=== PATIENT | male | born 1940 | race Caucasian/White ===

== ENCOUNTER → 2017-10-16 | Outpatient (CLI) | payer MEDICARE ==
[2017-10-16 08:16] LABS: HEMATOCRIT 50.1 % (42.0-52.0); HEMOGLOBIN 15.9 g/dl (14.0-18.0); MEAN CORPUSCULAR HGB CONC 31.7 g/dl (32.0-36.5); MEAN CORPUSCULAR VOLUME 97.7 fl (80.0-96.0); PLATELET COUNT, AUTOMATED 177 10^3/uL (150-450); RED BLOOD COUNT 5.13 10^6/uL (4.30-6.10); RED CELL DISTRIBUTION WIDTH 13.2 % (11.5-14.5); WHITE BLOOD COUNT 6.8 10^3/uL (4.0-10.0)
[2017-10-16 08:46] LABS: ALBUMIN 3.7 GM/DL (3.2-5.2); ALBUMIN/GLOBULIN RATIO 1.03 (1.00-1.93); ALKALINE PHOSPHATASE 62 U/L (45-117); ALT/SGPT 26 U/L (12-78); ANION GAP 5 MEQ/L (8-16); AST/SGOT 27 U/L (7-37); BILIRUBIN,TOTAL 0.6 MG/DL (0.2-1.0); BLOOD UREA NITROGEN 25 MG/DL (7-18); CALCIUM LEVEL 8.5 MG/DL (8.8-10.2); CARBON DIOXIDE LEVEL 34 MEQ/L (21-32); CHLORIDE LEVEL 104 MEQ/L (98-107); CHOLESTEROL LEVEL 177 MG/DL (<200); CHOLESTEROL RISK RATIO 4.022 (<5); GLOMERULAR FILTRATION RATE 52.6 (>42); GLUCOSE, FASTING 104 MG/DL (70-100); HDL CHOLESTEROL 44 MG/DL (>40); LDL CHOLESTEROL 114.4 MG/DL (<100); NON-HDL-C 133 MG/DL; POTASSIUM SERUM 3.8 MEQ/L (3.5-5.1); PROSTATIC SPECIFIC AG MONITOR 2.98 NG/ML (< 4.0); SODIUM LEVEL 143 MEQ/L (136-145); TOTAL PROTEIN 7.3 GM/DL (6.4-8.2); TRIGLYCERIDES LEVEL 93 MG/DL (<150)
[2017-10-16 09:02] LABS: ESTIMATED AVERAGE GLUCOSE 128 MG/DL (60-110); HEMOGLOBIN A1c 6.1 %
== END ==
LOC: M LAB 07:01
DX: I10 Essential (primary) hypertension (principal); E03.9 Hypothyroidism, unspecified; R94.31 Abnormal electrocardiogram [ECG] [EKG]; Z79.899 Other long term (current) drug therapy
CPT/HCPCS: 71046

== ENCOUNTER → 2020-05-30 | Outpatient (CLI) | payer MEDICARE ==
[~2020-05-30] MED LIST: ALBU17IN2 INH; LEVO125T4 PO; TERA5CAP3 PO; TRIA37.53 PO; ZETI10TA16 PO
[2020-05-30 08:33] LABS: HEMATOCRIT 47.3 % (42.0-52.0); HEMOGLOBIN 14.9 g/dl (13.5-17.5); MEAN CORPUSCULAR HGB CONC 31.5 g/dl (32.0-36.5); MEAN CORPUSCULAR VOLUME 101.5 fl (80.0-96.0); PLATELET COUNT, AUTOMATED 183 10^3/uL (150-450); RED BLOOD COUNT 4.66 10^6/uL (4.30-6.10); WHITE BLOOD COUNT 7.3 10^3/uL (4.0-10.0)
--- NOTE | 2020-05-30 08:51 | REP ---
INDICATION: HTN, FATIGUE, HYPERTENSION LABS AND EKG THEN XRAY. COMPARISON: 10/16/2017 TECHNIQUE: Two views FINDINGS: Of the lung main are well inflated. There is no pleural effusion. There is some minor basilar fibrotic change. This is stable in appearance. Heart is left ventricular configuration. No left atrial enlargement. No vascular redistribution or pulmonary edema. The aorta is mildly tortuous and without aneurysm. Appearance unchanged. Some prominence of pulmonary arteries centrally suggesting pulmonary artery hypertension, unchanged. The bony thorax shows no compression deformity or focal lesion. No free air under the diaphragm. IMPRESSION: 1. No acute cardiopulmonary disease, stable chest with some bibasilar linear fibrotic change. No dense consolidation or pleural effusion. 2. Left ventricular configuration of the heart without pulmonary edema. Stable exam. <Electronically signed by Omari Major > 05/30/20 0846
[2020-05-30 09:11] LABS: ALBUMIN 3.5 GM/DL (3.2-5.2); BILIRUBIN,TOTAL 0.9 MG/DL (0.2-1.0); CALCIUM LEVEL 8.5 MG/DL (8.8-10.2); CHOLESTEROL RISK RATIO 3.953 (<5); CREATININE FOR GFR 1.38 MG/DL (0.70-1.30); GLOMERULAR FILTRATION RATE 53.2 (>42); POTASSIUM SERUM 3.8 MEQ/L (3.5-5.1); PROSTATIC SPECIFIC AG MONITOR 3.33 NG/ML (< 4.00); THYROID STIMULATING HORMONE 0.187 uIU/ML (0.358-3.740)
[2020-05-30 09:20] LABS: HEMOGLOBIN A1c 5.8 %
--- NOTE | 2020-05-30 17:59 | ECGEPIP ---
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
== END ==
LOC: M LAB 07:05
PROVIDERS: ATTEND Family Medicine
DX: I10 Essential (primary) hypertension (principal); E03.9 Hypothyroidism, unspecified; R53.83 Other fatigue

== ENCOUNTER → 2021-02-14 | Outpatient (CLI) | payer MEDICARE ==
[2021-02-14 08:17] LABS: HEMATOCRIT 47.6 % (42.0-52.0); HEMOGLOBIN 15.4 g/dl (13.5-17.5); MEAN CORPUSCULAR HEMOGLOBIN 32.2 pg (27.0-33.0); MEAN CORPUSCULAR HGB CONC 32.4 g/dl (32.0-36.5); MEAN CORPUSCULAR VOLUME 99.4 fl (80.0-96.0); PLATELET COUNT, AUTOMATED 175 10^3/uL (150-450); RED BLOOD COUNT 4.79 10^6/uL (4.30-6.10); WHITE BLOOD COUNT 7.3 10^3/uL (4.0-10.0)
[2021-02-14 08:48] LABS: ALBUMIN 3.7 GM/DL (3.2-5.2); BILIRUBIN,TOTAL 1.7 MG/DL (0.2-1.0); CALCIUM LEVEL 8.9 MG/DL (8.8-10.2); CHOLESTEROL RISK RATIO 5.088 (<5); CREATININE FOR GFR 1.34 MG/DL (0.70-1.30); GLOMERULAR FILTRATION RATE 54.9 (>42); POTASSIUM SERUM 3.9 MEQ/L (3.5-5.1); PROSTATIC SPECIFIC AG MONITOR 4.95 NG/ML (< 4.00); THYROID STIMULATING HORMONE 5.87 uIU/ML (0.358-3.740); TOTAL PROTEIN 7.1 GM/DL (6.4-8.2)
--- NOTE | 2021-02-14 09:37 | REP ---
INDICATION: HTN, FATIGUE, HYPOTHYROID PT HAS LABS AND EKG FIRST. COMPARISON: Multiple the latest 05/30/2020 TECHNIQUE: PA and lateral views FINDINGS: The superior mediastinal structures are midline. The cardiac silhouette is unchanged in size, shape, and position. The diaphragmatic surfaces of the lungs are regular, and the costophrenic angles are clear. The pulmonary main are clear. The imaged osseous structures are intact. IMPRESSION: There is no acute cardiopulmonary disease. There is no change from the prior exam <Electronically signed by Ángel Carrion > 02/14/21 0933
[2021-02-14 10:23] LABS: HEMOGLOBIN A1c 5.9 %
--- NOTE | 2021-02-14 23:46 | ECGEPIP ---
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 No remarkable changes but slower heart rate Electronically Signed on 02-14-2021 23:46:45 EDT by Nii Wang
== END ==
LOC: M LAB 07:22
PROVIDERS: ATTEND Family Medicine
DX: I10 Essential (primary) hypertension (principal); E03.9 Hypothyroidism, unspecified; R53.83 Other fatigue

== ENCOUNTER → 2021-02-20 | Outpatient (CLI) | payer MEDICARE ==
[~2021-02-20] MED LIST changes: +ALBU8.5H INH; +ALPR0.5T3 PO; +GASTROGRAFIN SOLUTION 30ML (Q9963) As Ordered ONE; +ISOVUE-370 76% 100ML VIAL As Ordered ONE; +LEVO150T7 PO
== END ==
LOC: M RAD 08:04
PROVIDERS: ATTEND Family Medicine
DX: K40.90 Unilateral inguinal hernia, without obstruction or gangrene, not specified as recurrent (principal); K42.9 Umbilical hernia without obstruction or gangrene; K44.9 Diaphragmatic hernia without obstruction or gangrene; R19.03 Right lower quadrant abdominal swelling, mass and lump; I70.0 Atherosclerosis of aorta; I25.10 Atherosclerotic heart disease of native coronary artery without angina pectoris; M51.85 Other intervertebral disc disorders, thoracolumbar region; M41.9 Scoliosis, unspecified
CPT/HCPCS: 74178; Q9963; Q9967

== ENCOUNTER → 2021-05-16 | Outpatient (CLI) | payer MEDICARE ==
[~2021-05-16] MED LIST changes: -ALBU8.5H INH; -GASTROGRAFIN SOLUTION 30ML (Q9963) As Ordered ONE; -ISOVUE-370 76% 100ML VIAL As Ordered ONE
--- NOTE | 2021-05-16 08:37 | REP ---
INDICATION: HTN, COPD PRE-OP. COMPARISON: PA and lateral chest, 02/14/2021. TECHNIQUE: Upright PA and lateral chest images were obtained. FINDINGS: There is partial eventration of the right hemidiaphragm. The lungs are clear. Heart borders and mediastinum are normal. The upper abdominal bowel gas pattern is normal. There is mild dextroscoliosis of the thoracic spine. IMPRESSION: No evidence of acute cardiopulmonary pathology. <Electronically signed by Joshua Montez > 05/16/21 0865
[2021-05-16 09:16] LABS: HEMATOCRIT 47.9 % (42.0-52.0); HEMOGLOBIN 15.4 g/dl (13.5-17.5); MEAN CORPUSCULAR HEMOGLOBIN 31.9 pg (27.0-33.0); MEAN CORPUSCULAR HGB CONC 32.2 g/dl (32.0-36.5); MEAN CORPUSCULAR VOLUME 99.2 fl (80.0-96.0); PLATELET COUNT, AUTOMATED 188 10^3/uL (150-450); RED BLOOD COUNT 4.83 10^6/uL (4.30-6.10); WHITE BLOOD COUNT 7.3 10^3/uL (4.0-10.0)
[2021-05-16 09:39] LABS: INR 0.98; PROTHROMBIN TIME 13.3 SECONDS (12.7-14.5)
[2021-05-16 09:51] LABS: ALBUMIN 3.4 GM/DL (3.2-5.2); BILIRUBIN,TOTAL 1.2 MG/DL (0.2-1.0); CALCIUM LEVEL 9.1 MG/DL (8.8-10.2); CHOLESTEROL RISK RATIO 4.51 (<5); CREATININE FOR GFR 1.42 MG/DL (0.70-1.30); GLOMERULAR FILTRATION RATE 51.3 (>42); POTASSIUM SERUM 4.3 MEQ/L (3.5-5.1); PROSTATIC SPECIFIC AG MONITOR 3.16 NG/ML (< 4.00); THYROID STIMULATING HORMONE 0.008 uIU/ML (0.358-3.740)
[2021-05-16 10:12] LABS: HEMOGLOBIN A1c 5.6 %
--- NOTE | 2021-05-19 16:51 | ECGEPIP ---
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
== END ==
LOC: M RAD 07:17
PROVIDERS: ATTEND Family Medicine
DX: Z01.818 Encounter for other preprocedural examination (principal); J44.9 Chronic obstructive pulmonary disease, unspecified; I10 Essential (primary) hypertension; Z79.899 Other long term (current) drug therapy; R97.20 Elevated prostate specific antigen [PSA]

== ENCOUNTER → 2021-05-24 | Outpatient (CLI) | payer MEDICARE | LOC: M LABSMTC 10:00 | PROVIDERS: ATTEND Anesthesiology | DX: Z01.818 Encounter for other preprocedural examination (principal); Z11.52 Encounter for screening for COVID-19 ==

== ENCOUNTER 2021-05-29 06:13 | Day surgery (SDC) | payer MEDICARE ==
[~2021-05-29] VITALS: Ht 170.2 cm; Wt 98.0 kg
[~2021-05-29 06:13] MED LIST changes: +LIDOCAINE 1% MDV 20ML VIAL SQ PRN; +LR 1,000 ML IV ONE; +ceFAZolin SOD 2 GM in IV 1 EA IV ONE
--- OUTSIDE RECORDS SUMMARY | 2021-05-29 06:17 | CCD | Continuity of Care Document ---
Author Author Cecilio MULLEN MD Organization Unknown Address [address] [address] Phone [phone] Care Team Providers Care Sample Clerk Name Role Phone Tootie Venegas M.D. AUTM [phone] Problems Active Problems Provider Date Essential hypertension uDglas Mullen JR, MD Onset: 03/05/20 21 Social History Type Date Description Comments Sex Unknown ETOH Use 2 A Day Recreational Drug Use Denies Drug Use Tobacco Use Start: Unknown Denies Smoking Allergies, Adverse Reactions, Alerts Active Allergies Reaction Severity Comments Date Environmental Difficulty breathing, Nasal congestion 03/05/2021 Medications Active Medications SIG Qnty Indications Ordering Provide r Date Alprazolam 0.5mg Tablets 1 tab by mouth three times a day as needed Unknown Terazosin HCL 5mg Capsules 1 tab by mouth every day Unknown Levothyroxine Sodium 150mcg Tablet s 1 by mouth every day Unknown Ventolin HFA 108(90Base) mcg/Act A erosol 2 puffs qid/prn Unknown Tylenol Extra Strength 500mg Table ts as needed Unknown Claritin 10mg Tablets 1 by mouth every day Unknown Immunizations Description No Information Available Vital Signs Date Vital Result Comment 03/07/2021 10:20am BP Systolic 158 mmHg BP Diastolic 80 mmHg Heart Rate 93 /min Body Temperature 98.6 F Height 65 inches 5'5" Weight 230.38 lb BMI (Body Mass Index) 38.3 kg/m2 [place] Body Weight 136 lb Weight 104.498 kg BSA (Body Surface Area) 2.10 m2 Results Description No Information Available Procedures Description No Information Available Medical Devices Description No Information Available Encounters Description No Information Available Assessments Description No Information Available Plan of Treatment No Information Available Functional Status Description No Information Available Mental Status Description No Information Available Referrals Refer to Reason for Referral Status Appt Date Duglas Mullen JR, MD RIGHT INGUINAL HERNIA Scheduled [address] [place] [id number] [phone]
--- OUTSIDE RECORDS SUMMARY | 2021-05-29 06:17 | CCD | Continuity of Care Document ---
Author Author Cecilio MULLEN MD Organization Unknown Address [address] [address] Phone [phone] Care Team Providers Care Beef Grinder Name Role Phone Tootie Venegas M.D. AUTM [phone] Problems Active Problems Provider Date Essential hypertension Duglas Mullen JR, MD Onset: 03/05/20 21 Social History Type Date Description Comments Sex Unknown ETOH Use 2 A Day Recreational Drug Use Denies Drug Use Tobacco Use Start: Unknown Denies Smoking Allergies, Adverse Reactions, Alerts Active Allergies Criticality Reaction | Severity Comments Date Environmental Unable to assess criticality Difficulty breathing, Nasal congestion 03/05/2021 Medications Active [...] lb BMI (Body Mass Index) 38.3 kg/m2 [place] Body Weight 136 lb Weight 104.498 kg BSA (Body Surface Area) 2.10 m2 Results Description No Information Available Procedures Date Code Description Status 03/07/2021 59982 Office/Outpatient New Moderate M DM 45-59 Minutes Completed Medical Devices Description No Information Available Encounters Type Date Location Provider Dx Diagnosis Office Visit 03/07/2021 10:15a [facility] Duglas canseco JR, MD K40.90 Unil inguinal hernia, w/o obst or gangr, not spcf as recur K59.00 Constipation, unspecified Assessments Date Code Description Provider 03/07/2021 K40.90 Unilateral inguinal hernia, without obstruction or gangrene, not specified as recurrent Duglas Mullen JR, MD 03/07/2021 K59.00 Constipation, unspecified Duglas Mullen JR, MD Plan of Treatment Future Appointment(s):* 04/17/2021 1:00 pm - BAYLEE Quintanilla at [facility] * 04/03/2021 11:15 am - Duglas Mullen JR, MD at [facility] 03/07/2021 - Duglas Mullen JR, MD* K40.90 Unilateral inguinal hernia, without obstruction or gangrene, not specified as recurrent* Comments:* The patient has a symptomatic right inguinal hernia and at this point I recommendation is to proceed with operative repair of this symptomatic right inguinal hernia. We've discussed open as well as laparoscopic techniques of inguinal hernia repair. We discussed the risks as well as benefits associated with inguinal h ernia repair both open and laparoscopic techniques. The patient would like to proceed with a laparoscopic technique and I agree with this . We've discussed laparoscopic TEP versus robotic T AP and the benefits as well as the techniques associated with the procedure itself and the risks associated with the procedures. Typical Postoperative recovery was discussed with the patient and expected postoperative course. The patient agrees to proceed with robotic assisted laparoscopic right inguinal hernia repair * K59.00 Constipation, unspecified* Comments:* We have discussed at length with the patient and stool softeners including Colace and Senokot as well as MiraLax. The expectations of treatment with these medications and dosages that can be used. Specifically with Colace up to 200 mg twice a day and with Senokot up to 2 tabs by mouth twice a day and with MiraLax up to one capful or 2 tablespoons 4 times a day . Functional Status Description No Information Available Mental Status Description No Information Available Referrals Refer to Reason for Referral Status Appt Date Duglas Mullen JR, MD RIGHT INGUINAL HERNIA Scheduled [address] [facility] [address] [place] [id number] [phone]
--- OUTSIDE RECORDS SUMMARY | 2021-05-29 06:17 | CCD | Continuity of Care Document ---
Author Author Cecilio NUÑEZ M.D. Organization Unknown Address [address] [place] [address] Phone [phone] Care Team Providers Care A&P Mechanic Name Role Phone Tootie Venegas M.D. AUTM [phone] Problems Active Problems Provider Date Screening for malignant neoplasm of colon Hai quan M.D. Onset: 01/04/2016 Social History Type Date Description Comments Sex Unknown ETOH Use Rarely consumes alcohol Tobacco Use Start: Unknown Patient has never smoked Allergies, Adverse Reactions, Alerts Description No Known Drug Allergies Medications Active Medications SIG Qnty Indications Ordering Provide r Date Triamterene/Hydrochlorothiazide 37.5-25mg Capsules Tootie Venegas M.D. Terazosin HCL 5mg Capsules Tootie Venegas M.D. Levothyroxine Sodium 125mcg Tablets Tootie Venegas M.D. Alprazolam 0.5mg Tablets Take One Tablet By Mouth Three Times A Day Maximum Daily Dose 3 Tablets Unknown Immunizations Description No Information Available Vital Signs Date Vital Result Comment 03/12/2021 3:17pm Height 67 inches 5'7" Weight 229.00 lb BP Systolic 130 mmHg BP Diastolic 86 mmHg Heart Rate 98 /min BMI (Body Mass Index) 35.9 kg/m2 Weight 103.874 kg Body Temperature 97.7 F 01/04/2016 10:50am Height 67 inches 5'7" Weight 248.00 lb BP Systolic 184 mmHg BP Diastolic 99 mmHg Heart Rate 84 /min BMI (Body Mass Index) 38.8 kg/m2 Weight 112.493 kg Results Description No Information Available Procedures Date Code Description Status 03/12/2021 26061 Office/Outpatient New Low MDM 30 -44 Minutes Completed Medical Devices Description No Information Available Encounters Type Date Location Provider Dx Diagnosis Office Visit 03/12/2021 2:45p Main Office Hai Nuñez M.D. Z 86.010 Personal history of colonic polyps Assessments Date Code Description Provider 03/12/2021 Z86.010 History of adenomatous polyp of colon Hai Nuñez M.D. Plan of Treatment 03/12/2021 - Hai Nuñez M.D.* Z86.010 History of adenomatous polyp of colon* Comments:* 80 yo wm who presents for a colonoscopy due to a h/o colonic polyps. Last scope was in 2015. No c/o abdominal pain, weight loss, change in bowel habits, or rectal bleeding. No family h/o colon cancer. No h/o chest pain, or sob. Plan:1. Pt has elected to stop scopes at this time due to his age.2. Colonoscopy prn for symptoms.3. Office prn. Functional Status Description No Information Available Mental Status Description No Information Available Referrals Description No Information Available
--- OUTSIDE RECORDS SUMMARY | 2021-05-29 06:17 | CCD ---
Author Author [facility] Organization [facility] Address Unknown Phone Unavailable Care Team Providers Care Animal Cop Name Role Phone Hiral Nuñez MD Unavailable Unavailable Hiral Nuñez MD Unavailable Unavailable Hiral Nuñez MD Unavailable Unavailable Hiral Nuñez MD Unavailable Unavailable Hiral Nuñez MD Unavailable Unavailable Hiral Nuñez MD Unavailable Unavailable Hiral Nuñez MD Unavailable Unavailable Hiral Nuñez MD Unavailable Unavailable Hiral Nuñez MD Unavailable Unavailable Hiral Nuñez MD Unavailable Unavailable Hiral Nuñez MD Unavailable Unavailable Hiral Nuñez MD Unavailable Unavailable Hiral Nuñez MD Unavailable Unavailable Hiral Nuñez MD Unavailable Unavailable Hiral Nuñez MD Unavailable Unavailable Hiral Nuñez MD Unavailable Unavailable Hiral Nuñez MD Unavailable Unavailable Hiral Nuñez MD Unavailable Unavailable Hiral Nuñez MD Unavailable Unavailable Hiral Nuñez MD Unavailable Unavailable Hiral Nuñez MD Unavailable Unavailable Hiral Nuñez MD Unavailable Unavailable Hiral Nuñez MD Unavailable Unavailable Hiral Nuñez MD Unavailable Unavailable Hiral Nuñez MD Unavailable Unavailable Hiral Nuñez MD Unavailable Unavailable Hiral Nuñez MD Unavailable Unavailable Hiral Nuñez MD Unavailable Unavailable Hiral Nuñez MD Unavailable Unavailable Hiral Nuñez MD Unavailable Unavailable Hiral Nuñez MD Unavailable Unavailable Hiral Nuñez MD Unavailable Unavailable Hiral Nuñez MD Unavailable Unavailable Hiral Nuñez MD Unavailable Unavailable Hiral Nuñez MD Unavailable Unavailable Hiral Nuñez MD Unavailable Unavailable Hiral Nuñez MD Unavailable Unavailable Hiral Nuñez MD Unavailable Unavailable Hiral Nuñez MD Unavailable Unavailable Hiral Nuñez MD Unavailable Unavailable Savannah S Hai ALANIZ Unavailable Unavailable Savannah S Hai ALANIZ Unavailable Unavailable Savannah S Hai ALANIZ Unavailable Unavailable Savannah S Hai ALANIZ Unavailable Unavailable Savannah S Hai ALANIZ Unavailable Unavailable Savannah S Hai ALANIZ Unavailable Unavailable Savannah S Hai ALANIZ Unavailable Unavailable Savannah S Hai ALANIZ Unavailable Unavailable Savannah S Hai ALANIZ Unavailable Unavailable Savannah S Hai ALANIZ Unavailable Unavailable Xin Mullen JR, MD Unavailable Unavailable Xin Mullen JR, MD Unavailable Unavailable Xin Mullen JR, MD Unavailable Unavailable Xin Mullen JR, MD Unavailable Unavailable Xin Mullen JR, MD Unavailable Unavailable Xin Mullen JR, MD Unavailable Unavailable Xin Mullen JR, MD Unavailable Unavailable Xin Mullen JR, MD Unavailable Unavailable Xin Mullen JR, MD Unavailable Unavailable Xin Mullen JR, MD Unavailable Unavailable Xin Mullen JR, MD Unavailable Unavailable Xin Mullen JR, MD Unavailable Unavailable Xin Mullen JR, MD Unavailable Unavailable Xin Mullen JR, MD Unavailable Unavailable Xin Mullen JR, MD Unavailable Unavailable Xin Mullen JR, MD Unavailable Unavailable Xin Mullen JR, MD Unavailable Unavailable Xin Mullen JR, MD Unavailable Unavailable Xin Mullen JR, MD Unavailable Unavailable Xin Mullen JR, MD Unavailable Unavailable Xin Mullen JR, MD Unavailable Unavailable Xin Mullen JR, MD Unavailable Unavailable Xin Mullen JR, MD Unavailable Unavailable Xin Mullen JR, MD Unavailable Unavailable Xin Mullen JR, MD Unavailable Unavailable Xin Mullen JR, MD Unavailable Unavailable Xin Mullen JR, MD Unavailable Unavailable Xin Mullen JR, MD Unavailable Unavailable Xin Mullen JR, MD Unavailable Unavailable Xin Muleln JR, MD Unavailable Unavailable Xin Mullen JR, MD Unavailable Unavailable Xin Mullen JR, MD Unavailable Unavailable Xin Mullen JR, MD Unavailable Unavailable Xin Mullen JR, MD Unavailable Unavailable Xin Mullen JR, MD Unavailable Unavailable Xin Mullen JR, MD Unavailable Unavailable Xin Mullen JR, MD Unavailable Unavailable Xin Mullen JR, MD Unavailable Unavailable Xin Mullen JR, MD Unavailable Unavailable Xin Mullen JR, MD Unavailable Unavailable Sebas JR, J Duglas MD Unavailable Unavailable Sebas JR, J Duglas MD Unavailable Unavailable Sebas JR, J Duglas MD Unavailable Unavailable Sebas JR, J Duglas MD Unavailable Unavailable Sebas JR, J Duglas MD Unavailable Unavailable Sebas JR, J Duglas MD Unavailable Unavailable Sebas JR, J Duglas MD Unavailable Unavailable Sebas JR, J Duglas MD Unavailable Unavailable Sebas JR, J Duglas MD Unavailable Unavailable Sebas JR, J Duglas MD Unavailable Unavailable Sebas JR, J Duglas MD Unavailable Unavailable Sebas JR, J Duglas MD Unavailable Unavailable Sebas JR, J Duglas MD Unavailable Unavailable Sebas JR, J Duglas MD Unavailable Unavailable Re-disclosure Warning The records that you are about to access may contain information from federally-assisted alcohol or drug abuse programs. If such information is present, then the following federally mandated warning applies: This information has been disclosed to you from records protected by federal confidentiality rules (42 CFR part 2). The federal rules prohibit you from making any further disclosure of this information unless further disclosure is expressly permitted by the written consent of the person to whom it pertains or as otherwise permitted by 42 CFR part 2. A general authorization for the release of medical or other information is NOT sufficient for this purpose. The Federal rules restrict any use of the information to criminally investigate or prosecute any alcohol or drug abuse patient.The records that you are about to access may contain highly sensitive health information, the redisclosure of which is protected by Article 27-F of the [facility] Public Health law. If you continue you may have access to information: Regarding HIV / AIDS; Provided by facilities licensed or operated by the [facility] Office of Mental Health; or Provided by the [facility] Office for People With Developmental Disabilities. If such information is present, then the following [facility] mandated warning applies: This information has been disclosed to you from confidential records which are protected by state law. State law prohibits you from making any further disclosure of this information without the specific written consent of the person to whom it pertains, or as otherwise permitted by law. Any unauthorized further disclosure in violation of state law may result in a fine or care home sentence or both. A general authorization for the release of medical or other information is NOT sufficient authorization for further disc losure. Family History Family Member Name Family Member Gender Family Member Status Date o f Status Description Data Source(s) Unknown Unknown Problem [facility] ([facility]) Encounters Encounter Providers Location Date Indications Data Source(s ) Outpatient Attender: Hai Nuñez MD Main Office 03/12/2021 02:45:00 PM EDT [facility] ([facility]) Outpatient Attender: Duglas Machado/Dieudonne/Anupam/Morteza dl 03/07/2021 10:15:00 AM EDT [facility] Immunizations Vaccine Date Status Description Data Source(s) COVID-19 VACCINE Moderna 09/06/2020 12:00:00 AM EST completed [facility] Vaccine Series Complete: YESThis Data wa s Submitted to [facility]. COVID-19 VACCINE Moderna 08/07/2020 12:00:00 AM EST completed [facility] Vaccine Series Complete: NOThis Data was Submitted to [facility]. Medications Medication Brand Name Start Date Product Form Dose Route Admi nistrative Instructions Pharmacy Instructions Status Indications Reaction Description Data Source(s) 90 mcg/actuation 05/16/2021 12:00:00 AM EDT HFA aerosol inha ler 36 INHALE TWO PUFFS BY MOUTH FOUR TIMES A DAY INHALE TWO PUFFS BY MOUTH FOUR TIMES A DAY SOLD: 05/17/2021 [facility] Alprazolam 0.5 MG Oral Tablet ALPRAZOLAM 05/16/2021 12:00:00 AM EDT ta blet 90 TAKE ONE TABLET BY MOUTH THREE TIMES A DAY MAXIMUM DAILY DOSE = 3 TABLETS TAKE ONE TABLET BY MOUTH THREE TIMES A DAY MAXIMUM DAILY DOSE = 3 TABLETS SOLD: 05/17/2021 [facility] 5 mg 05/16/2021 12:00:00 AM EDT capsule 90 TAKE ONE CAPSULE BY MOUTH EVERY DAY TAKE ONE CAPSULE BY MOUTH EVERY DAY SOLD: 05/17/2021 [facility] 500 mg 02/12/2021 12:00:00 AM EDT capsule 40 TAKE ONE CAPSULE BY MOUTH FOUR TIMES A DAY TAKE ONE CAPSULE BY MOUTH FOUR TIMES A DAY SOLD: 02/13/2021 [facility] Alprazolam 0.5 MG Oral Tablet ALPRAZOLAM 02/12/2021 12:00:00 AM EDT ta blet 90 TAKE ONE TABLET BY MOUTH THREE TIMES A DAY MAXIMUM DAILY DOSE = 3 TABLETS TAKE ONE TABLET BY MOUTH THREE TIMES A DAY MAXIMUM DAILY DOSE = 3 TABLETS SOLD: 02/13/2021 [facility] 5 mg 02/12/2021 12:00:00 AM EDT capsule 90 TAKE ONE CAPSULE BY MOUTH EVERY DAY TAKE ONE CAPSULE BY MOUTH EVERY DAY SOLD: 02/13/2021 [facility] Alprazolam 0.5 MG Oral Tablet ALPRAZOLAM 12/06/2020 12:00:00 AM EDT ta blet 90 TAKE 1 TABLET BY MOUTH 3 TIMES A DAY MAXIMUM DAILY DOSE = 3 TABLETS TAKE 1 TABLET BY MOUTH 3 TIMES A DAY MAXIMUM DAILY DOSE = 3 TABLETS SOLD: 12/07/2020 [facility] 150 mcg 12/06/2020 12:00:00 AM EDT tablet 90 TAKE ONE TABLET BY MOUTH EVERY DAY TAKE ONE TABLET BY MOUTH EVERY DAY SOLD: 12/07/2020 [facility] Hydrochlorothiazide 25 MG / Triamterene 37.5 MG Oral C apsule 37.5-25 mg TRIAMTERENE/HYDROCHLOROTHIAZID 12/06/2020 12:00:00 AM EDT capsule 90 TAKE ONE CAPSULE BY MOUTH EVERY DAY TAKE ONE CAPSULE BY MOUTH EVERY DAY SOLD: 12/07/2020 [facility] 500 mg 12/05/2020 12:00:00 AM EDT tablet 20 TAKE ONE TABLET BY MOUTH TWICE A DAY FOR 10 DAYS TAKE ONE TABLET BY MOUTH TWICE A DAY FOR 10 DAYS SOLD: 12/07/2020 [facility] 5 mg 11/22/2020 12:00:00 AM EDT capsule 90 TAKE ONE CAPSULE BY MOUTH EVERY DAY TAKE ONE CAPSULE BY MOUTH EVERY DAY SOLD: 11/23/2020 [facility] 150 mcg 08/16/2020 12:00:00 AM EST tablet 90 TAKE ONE TABLET BY MOUTH EVERY DAY TAKE ONE TABLET BY MOUTH EVERY DAY SOLD: 08/18/2020 [facility] 5 mg 08/16/2020 12:00:00 AM EST capsule 90 TAKE ONE CAPSULE BY MOUTH EVERY DAY TAKE ONE CAPSULE BY MOUTH EVERY DAY SOLD: 08/18/2020 [facility] Alprazolam 0.5 MG Oral Tablet ALPRAZOLAM 08/16/2020 12:00:00 AM EST ta blet 90 TAKE ONE TABLET BY MOUTH THREE TIMES A DAY MAXIMUM DAILY DOSE = 3 TABLETS TAKE ONE TABLET BY MOUTH THREE TIMES A DAY MAXIMUM DAILY DOSE = 3 TABLETS SOLD: 08/18/2020 [facility] 37.5-25 mg 08/16/2020 12:00:00 AM EST capsule 90 TAKE ONE CAPSULE BY MOUTH EVERY DAY TAKE ONE CAPSULE BY MOUTH EVERY DAY SOLD: 08/18/2020 [facility] 150 mcg 05/16/2020 12:00:00 AM EDT tablet 90 TAKE ONE TABLET BY MOUTH EVERY DAY TAKE ONE TABLET BY MOUTH EVERY DAY SOLD: 05/17/2020 [facility] 5 mg 05/16/2020 12:00:00 AM EDT capsule 90 TAKE ONE CAPSULE BY MOUTH EVERY DAY TAKE ONE CAPSULE BY MOUTH EVERY DAY SOLD: 05/17/2020 [facility] Alprazolam 0.5 MG Oral Tablet ALPRAZOLAM 05/16/2020 12:00:00 AM EDT ta blet 90 TAKE ONE TABLET BY MOUTH THREE TIMES A DAY MAXIMUM DAILY DOSE = 3 TAKE ONE TABLET BY MOUTH THREE TIMES A DAY MAXIMUM DAILY DOSE = 3 SOLD: 05/17/2020 [facility] Insurance Providers Payer name Policy type / Coverage type Policy ID Covered green party ID Covered green party's relationship to hooper Policy Hooper Plan Information MEDICARE [id number] SP [id number] A [facility] HEALTH CARE OPTIONS [id number] SP [id number] MEDICARE [id number] SP [id number] [facility] HEALTH CARE OPTIONS [id number] SP [id number] Medicare [place] Primary [id number] Self [id number] [facility] O [id number] S [id number] MEDICARE C [id number] S [id number] A [facility] Health Care Options [facility] Part B [id number] Self Problems, Conditions, and Diagnoses Code Display Name Description Problem Type Effective Dates Data Source(s) [id number] Essential hypertension Essential hypertension Problem 03/05/2021 12:00:00 AM KENA BOYD ([facility], ) Surgeries/Procedures Procedure Description Date Indications Data Source(s) OFFICE OUTPATIENT NEW 30 MINUTES 03/12/2021 12:00:00 A M KENA BOYD ([facility]) OFFICE OUTPATIENT NEW 45 MINUTES 03/07/2021 12:00:00 A M EDT [facility] ([facility], ) Results ID Date Data Source [id number] 05/24/2021 10:05:00 AM EDT [facility] Name Value Range Interpretation Code Description Data Neyda rce(s) Supporting Document(s) SARS-CoV-2 (COVID-19) RNA [Presence] in Respiratory specimen by TYLER with probe detection Not Detected [facility] This lab was ordered by [facility] and reported by [facility]. Procedure Social History No Information Vital Signs ID Date Data Source UNK Name Value Range Interpretation Code Description Data Source(s) Body height 67 [in_i] 67 [in_i] [facility] ([facility]) 5'7" Body weight 229.00 [lb_av] 229.00 [lb_av] [facility] T ([facility]) Systolic blood pressure 130 mm[Hg] 130 mm[Hg[facility] Diastolic blood pressure 86 mm[Hg] 86 mm[Hg] [facility] Heart rate 98 /min 98 /min [facility] Body mass index (BMI) [Ratio] 35.9 kg/m2 35.9 k g/m2 [facility] Body weight 103.874 kg 103.874 kg [facility] ([facility]) Body temperature 97.7 [degF] 97.7 [degF] [facility] Body weight 230.38 [lb_av] 230.38 [lb_av] [facility] T ([facility]) Body mass index (BMI) [Ratio] 38.3 kg/m2 38.3 k g/m2 [facility] ([facility]) Fosters body weight 136 [lb_av] 136 [lb_av] [facility] T ([facility]) Body weight 104.498 kg 104.498 kg [facility] ([facility]) Body surface area Derived from formula 2.10 m2 2.10 m2 [facility] ([facility]) Systolic blood pressure 158 mm[Hg] 158 mm[Hg] M [facility] ([facility], ) Diastolic blood pressure 80 mm[Hg] 80 mm[Hg] [facility] ([facility]) Heart rate 93 /min 93 /min [facility] Body temperature 98.6 [degF] 98.6 [degF] [facility] ([facility], ) Body height 65 [in_i] 65 [in_i] [facility] ([facility], ) 5'5"
[2021-05-29] MEDS ORDERED: ALBU8.5H INH (07:04)
[2021-05-29] MEDS ORDERED: BUPIVACAINE/EPIN 0.25% 30 ML VIAL As Ordered ONE (07:09)
[2021-05-29] MEDS ORDERED: propofoL 200 MG/20 ML VIAL As Ordered ONE (07:13)
[2021-05-29] MEDS ORDERED: LIDOCAINE 2% 100MG/5ML SDV (FOR ANES.) As Ordered ONE (07:13)
[2021-05-29] MEDS ORDERED: ROCURONIUM BROMIDE 50 MG/5 ML VIAL As Ordered ONE ×2 (07:13→08:21)
[2021-05-29] MEDS ORDERED: MIDAZOLAM INJ 2MG/2ML VIAL (J2250 PER 1MG) As Ordered ONE (07:13)
[2021-05-29] MEDS ORDERED: fentaNYL 250 MCG/5 ML INJECTION (J3010) As Ordered ONE (07:13)
[2021-05-29] MEDS ORDERED: ePHEDrine SULFATE 25 MG/5 ML(5MG/ML) SYRINGE As Ordered ONE (07:45)
[2021-05-29] MEDS ORDERED: PHENYLephrine 500MCG 5ML (100MCG/ML) SYRINGE As Ordered ONE ×2 (07:45→08:56)
[2021-05-29] MEDS ORDERED: dexameTHASONE 4 MG/ML 1ML VIAL (J1100 PER 1MG) As Ordered ONE (08:11)
[2021-05-29] MEDS ORDERED: ACETAMINOPHEN 1000MG 100ML IV BTL (OFIRMEV) (J0131 PER 10MG) As Ordered ONE (08:14)
[2021-05-29] MEDS ORDERED: KETOROLAC 60MG 2ML VIAL As Ordered ONE (08:16)
[2021-05-29] MEDS ORDERED: METOCLOPRAMIDE INJ 10MG/2ML VIAL (J2765 PER 1) As Ordered ONE (08:16)
[2021-05-29] MEDS ORDERED: SUGAMMADEX SODIUM 500 MG/5 ML VIAL (BRIDION) As Ordered ONE ×2 (08:16→08:17)
[2021-05-29] MEDS ORDERED: ONDANSETRON 4MG/2ML VIAL As Ordered ONE (08:16)
--- NOTE | 2021-05-29 09:16 | RO ---
OPERATIVE NOTE DATE OF OPERATION: 05/29/2021 PREOPERATIVE DIAGNOSIS: Right inguinal hernia. POSTOPERATIVE DIAGNOSIS: Right inguinal hernia. PROCEDURE: Robotic-assisted laparoscopic right inguinal hernia repair with ProGrip mesh. SURGEON: Duglas Mullen Jr., MD OFFICE MAIL CLERK: JARROD Azar. Provided instrument exchange, trocar placement, abdominal wall closure and mesh placement. ANESTHESIA: General endotracheal anesthesia. ESTIMATED BLOOD LOSS: Minimal. FLUIDS: Crystalloid. DISPOSITION: Patient was taken to the recovery room awake, alert and hemodynamically stable. BRIEF OPERATIVE SUMMARY: The patient was taken to the operating room and was given general anesthesia. After adequate anesthesia and preoperative antibiotics were given, the patient was prepped and draped in the usual sterile fashion. Next, a supraumbilical incision was made with a skin knife. Blunt dissection was carried down to fascia. Veress placed into the abdominal cavity, insufflated to 15 mmHg. Then a dilating 8 mm trocar was placed in the supraumbilical site and then two lateral 8 mm trocars were placed under direct visualization. Next, the patient was placed in Trendelenburg and the hernia was reduced. There was a fair bit of scarring down in the right lower quadrant where a previous appendectomy was performed and this was able to be cleared of scar tissue using the monopolar cut scissors but in any case, the patient was left in the Trendelenburg position. The robot was docked and then the monopolar cut scissors were used to take down adhesions and then the peritoneal flap was created using monopolar cut scissors and blunt dissection. Eventually the hernia sac which was relatively large was mobilized out of the inguinal canal and once this was mobilized adequately, the ProGrip mesh was cut to the appropriate size, placed in the peritoneal space and pressed into position. The peritoneum was closed over the top of this with a running 3-0 V-Loc and all trocars were removed under direct visualization. 4-0 Vicryl was used to close the skin incision. Steri-Strips and a dry sterile dressing were applied. The patient was awakened, extubated, brought to the recovery room awake, alert, hemodynamically stable. Sponge and needle counts were correct x2.
[2021-05-29] MEDS ORDERED: LR 1,000 ML IV SCH ×2 (09:25→09:30)
[2021-05-29] MEDS ORDERED: oxyCODONE 5MG TAB PO PRN (09:25)
[2021-05-29] MEDS ORDERED: fentaNYL 100 MCG/2 ML INJECTION (J3010) IV PRN (09:25)
[2021-05-29] MEDS ORDERED: ONDANSETRON 4MG/2ML VIAL IV PRN (09:25)
[2021-05-29] MEDS ORDERED: NORCO, ANEXSIA 5/325MG TABLET (HYDROcodone/ACETAMINOPHEN) PO PRN ×2 (09:30)
[2021-05-29 11:20] VITALS: BP 131/79
== END 2021-05-29 13:24 | disposition home or self-care (01) ==
LOC: M SDC 06:13
PROVIDERS: ATTEND Surgery
DX: K40.90 Unilateral inguinal hernia, without obstruction or gangrene, not specified as recurrent (principal); I10 Essential (primary) hypertension; E03.9 Hypothyroidism, unspecified; F41.9 Anxiety disorder, unspecified; N40.0 Benign prostatic hyperplasia without lower urinary tract symptoms; Z79.899 Other long term (current) drug therapy; J45.909 Unspecified asthma, uncomplicated
CPT/HCPCS: 49650; C1781; J0131; J0690; J1100; J1885; J2250; J2370; J2405; J2765; J3010; S2900

== ENCOUNTER → 2021-08-07 | Outpatient (CLI) | payer MEDICARE ==
[~2021-08-07] MED LIST changes: +ALBU8.5H INH; -LIDOCAINE 1% MDV 20ML VIAL SQ PRN; -LR 1,000 ML IV ONE; -ceFAZolin SOD 2 GM in IV 1 EA IV ONE
[2021-08-07 10:56] LABS: APPEARANCE, URINE HAZY (CLEAR); BACTERIA, URINE AUTO NEGATIVE (NEGATIVE); BILIRUBIN, URINE AUTO NEGATIVE (NEGATIVE); BLOOD, URINE BLOOD NEGATIVE (NEGATIVE); COLOR, URINE AMBER (YELLOW); GLUCOSE, URINE (UA) AUTO NEGATIVE (NEGATIVE); KETONE, URINE AUTO TRACE mg/dL (NEGATIVE); LEUKOCYTE ESTERASE, URINE AUTO NEGATIVE (NEGATIVE); MUCUS, URINE SMALL (NEGATIVE); NITRITE, URINE AUTO NEGATIVE (NEGATIVE); PROTEIN, URINE AUTO 2+ mg/dL (NEGATIVE); RBC, URINE AUTO 1 /HPF (0-3); SPECIFIC GRAVITY URINE AUTO 1.031 (1.002-1.035); SQUAMOUS EPITHELIAL CELL UR AU 0 /HPF (0-6); WBC, URINE AUTO 2 /HPF (0-3)
[2021-08-07 11:00] LABS: HEMATOCRIT 44.4 % (42.0-52.0); HEMOGLOBIN 14.3 g/dl (13.5-17.5); MEAN CORPUSCULAR HEMOGLOBIN 31.6 pg (27.0-33.0); MEAN CORPUSCULAR HGB CONC 32.2 g/dl (32.0-36.5); PLATELET COUNT, AUTOMATED 203 10^3/uL (150-450); RED BLOOD COUNT 4.53 10^6/uL (4.30-6.10); WHITE BLOOD COUNT 9.3 10^3/uL (4.0-10.0)
[2021-08-07 13:52] LABS: ALBUMIN 3.4 GM/DL (3.2-5.2); CALCIUM LEVEL 9.1 MG/DL (8.8-10.2); CREATININE FOR GFR 1.94 MG/DL (0.70-1.30); GLOMERULAR FILTRATION RATE 35.7 (>42); POTASSIUM SERUM 3.7 MEQ/L (3.5-5.1); PROSTATIC SPECIFIC AG MONITOR 3.92 NG/ML (< 4.00); TOTAL PROTEIN 6.9 GM/DL (6.4-8.2)
[2021-08-07 14:45] LABS: HEMOGLOBIN A1c 5.7 %
== END ==
LOC: M LAB 09:43
PROVIDERS: ATTEND Family Medicine
DX: R10.9 Unspecified abdominal pain (principal); K57.32 Diverticulitis of large intestine without perforation or abscess without bleeding

== ENCOUNTER → 2021-08-13 | Outpatient (CLI) | payer MEDICARE ==
[~2021-08-13] MED LIST changes: +GASTROGRAFIN SOLUTION 30ML (Q9963) As Ordered ONE
== END ==
LOC: M RAD 11:49
PROVIDERS: ATTEND Family Medicine
DX: R10.31 Right lower quadrant pain (principal); R91.8 Other nonspecific abnormal finding of lung field
CPT/HCPCS: 74176; Q9963

== ENCOUNTER → 2021-09-10 | Outpatient (CLI) | payer MEDICARE ==
[~2021-09-10] MED LIST changes: -GASTROGRAFIN SOLUTION 30ML (Q9963) As Ordered ONE
== END ==
LOC: M PLARAD 11:22
PROVIDERS: ATTEND Surgery
DX: R22.2 Localized swelling, mass and lump, trunk (principal)
CPT/HCPCS: 78815; A9552

== ENCOUNTER → 2022-02-04 | Outpatient (CLI) | payer MEDICARE ==
[~2022-02-04] MED LIST changes: +PROAAER10 INH; +PROB250C PO; -TRIA37.53 PO; +TRIA37.577 PO
== END ==
LOC: M PLAIMG 10:02
PROVIDERS: ATTEND Internal Medicine
DX: R91.8 Other nonspecific abnormal finding of lung field (principal)

== ENCOUNTER → 2022-05-17 | Outpatient (CLI) | payer MEDICARE | LOC: M RAD 07:10 | PROVIDERS: ATTEND Family Medicine | DX: M54.30 Sciatica, unspecified side (principal); M51.36 Other intervertebral disc degeneration, lumbar region ==

== ENCOUNTER → 2022-08-06 | Outpatient (CLI) | payer MEDICARE ==
[~2022-08-06] MED LIST changes: +GASTROGRAFIN SOLUTION 30ML As Ordered ONE; +ISOVUE-370 76% 100ML VIAL As Ordered ONE
== END ==
LOC: M RAD 12:59
PROVIDERS: ATTEND Internal Medicine
DX: R22.2 Localized swelling, mass and lump, trunk (principal)
CPT/HCPCS: 74177; Q9963; Q9967

== ENCOUNTER → 2023-02-18 | Outpatient (CLI) | payer MEDICARE ==
[~2023-02-18] MED LIST changes: -GASTROGRAFIN SOLUTION 30ML As Ordered ONE; +HYDR50CA2; -ISOVUE-370 76% 100ML VIAL As Ordered ONE
[2023-02-18 08:19] LABS: HEMATOCRIT 43.2 % (42.0-52.0); HEMOGLOBIN 13.9 g/dl (13.5-17.5); MEAN CORPUSCULAR HEMOGLOBIN 30.5 pg (27.0-33.0); MEAN CORPUSCULAR HGB CONC 32.2 g/dl (32.0-36.5); MEAN CORPUSCULAR VOLUME 94.9 fl (80.0-96.0); PLATELET COUNT, AUTOMATED 218 10^3/uL (150-450); RED BLOOD COUNT 4.55 10^6/uL (4.30-6.10); WHITE BLOOD COUNT 6.9 10^3/uL (4.0-10.0)
[2023-02-18 08:41] LABS: HEMOGLOBIN A1c 5.6 % (4.0-6.0)
[2023-02-18 09:01] LABS: ALBUMIN 3.7 G/DL (3.2-5.2); BILIRUBIN,TOTAL 1.4 MG/DL (0.3-1.2); CALCIUM LEVEL 8.9 MG/DL (8.3-10.6); CHOLESTEROL RISK RATIO 4.88 (<5); CREATININE FOR GFR 1.62 MG/DL (0.70-1.30); GLOMERULAR FILTRATION RATE 43.9 (>35); HDL CHOLESTEROL 39.5 MG/DL (>40); LDL CHOLESTEROL 126.1 MG/DL (<100); NON-HDL-C 153.5 MG/DL; POTASSIUM SERUM 3.3 MMOL/L (3.5-5.1); PROSTATIC SPECIFIC AG MONITOR 3.24 NG/ML (< 4.00); THYROID STIMULATING HORMONE 1.281 uIU/ML (0.55-4.78); TOTAL PROTEIN 6.6 G/DL (5.7-8.2)
== END ==
LOC: M LAB 07:32
PROVIDERS: ATTEND Family Medicine
DX: I10 Essential (primary) hypertension (principal); E03.9 Hypothyroidism, unspecified; R53.83 Other fatigue

== ENCOUNTER → 2024-02-11 | Outpatient (CLI) | payer MEDICARE ==
[~2024-02-11] MED LIST changes: +CVS1CAP2 PO; +EZET10TA58 PO; +PROA1AER2 INH; +SYNT125T PO; +VITMTA PO; -ZETI10TA16 PO
[2024-02-11 07:39] LABS: HEMATOCRIT 41.9 % (42.0-52.0); HEMOGLOBIN 13.6 g/dl (13.5-17.5); MEAN CORPUSCULAR HEMOGLOBIN 31.6 pg (27.0-33.0); MEAN CORPUSCULAR HGB CONC 32.5 g/dl (32.0-36.5); MEAN CORPUSCULAR VOLUME 97.4 fl (80.0-96.0); PLATELET COUNT, AUTOMATED 198 10^3/uL (150-450); WHITE BLOOD COUNT 7.7 10^3/uL (4.0-10.0)
[2024-02-11 08:11] LABS: ALBUMIN 3.5 G/DL (3.2-5.2); BILIRUBIN,TOTAL 1.2 MG/DL (0.3-1.2); CALCIUM LEVEL 8.4 MG/DL (8.3-10.6); CHOLESTEROL RISK RATIO 5.06 (<5); CREATININE FOR GFR 1.55 MG/DL (0.70-1.30); HDL CHOLESTEROL 40.9 MG/DL (>40); LDL CHOLESTEROL 147.5 MG/DL (<100); NON-HDL-C 166.1 MG/DL; POTASSIUM SERUM 3.5 MMOL/L (3.5-5.1); PROSTATIC SPECIFIC AG MONITOR 4.24 NG/ML (< 4.00); TOTAL PROTEIN 6.4 G/DL (5.7-8.2)
[2024-02-11 08:13] LABS: THYROID STIMULATING HORMONE 2.181 uIU/ML (0.55-4.78)
[2024-02-11 08:24] LABS: HEMOGLOBIN A1c 5.5 % (4.0-6.0)
== END ==
LOC: M LAB 07:13
PROVIDERS: ATTEND Family Medicine
DX: D64.9 Anemia, unspecified (principal); R53.83 Other fatigue; E03.9 Hypothyroidism, unspecified; Z79.890 Hormone replacement therapy; Z79.899 Other long term (current) drug therapy

== ENCOUNTER → 2024-07-23 | Outpatient (CLI) | payer MEDICARE ==
[2024-07-23 11:45] LABS: HEMATOCRIT 44.4 % (42.0-52.0); HEMOGLOBIN 14.5 g/dl (13.5-17.5); MEAN CORPUSCULAR HEMOGLOBIN 31.3 pg (27.0-33.0); MEAN CORPUSCULAR HGB CONC 32.7 g/dl (32.0-36.5); MEAN CORPUSCULAR VOLUME 95.9 fl (80.0-96.0); PLATELET COUNT, AUTOMATED 213 10^3/uL (150-450); RED BLOOD COUNT 4.63 10^6/uL (4.30-6.10); WHITE BLOOD COUNT 6.3 10^3/uL (4.0-10.0)
[2024-07-23 11:50] LABS: APPEARANCE, URINE CLEAR (CLEAR); BACTERIA, URINE AUTO NEGATIVE (NEGATIVE); BILIRUBIN, URINE AUTO NEGATIVE (NEGATIVE); BLOOD, URINE BLOOD NEGATIVE (NEGATIVE); COLOR, URINE YELLOW (YELLOW); GLUCOSE, URINE (UA) AUTO NEGATIVE (NEGATIVE); KETONE, URINE AUTO NEGATIVE (NEGATIVE); LEUKOCYTE ESTERASE, URINE AUTO NEGATIVE (NEGATIVE); MUCUS, URINE SMALL (NEGATIVE); NITRITE, URINE AUTO NEGATIVE (NEGATIVE); PROTEIN, URINE AUTO NEGATIVE (NEGATIVE); RBC, URINE AUTO 1 /HPF (0-3); SPECIFIC GRAVITY URINE AUTO 1.017 (1.002-1.035); SQUAMOUS EPITHELIAL CELL UR AU 0 /HPF (0-6); UROBILINOGEN, URINE AUTO 0.2 mg/dL (0.0-2.0); WBC, URINE AUTO 1 /HPF (0-3)
[2024-07-23 12:02] LABS: HEMOGLOBIN A1c 5.6 % (4.0-6.0)
[2024-07-23 12:12] LABS: ALBUMIN 3.6 G/DL (3.2-5.2); BILIRUBIN,TOTAL 0.8 MG/DL (0.3-1.2); CALCIUM LEVEL 9.5 MG/DL (8.3-10.6); CHOLESTEROL RISK RATIO 5.21 (<5); CREATININE FOR GFR 1.56 MG/DL (0.70-1.30); GLOMERULAR FILTRATION RATE 45.6 (>35); HDL CHOLESTEROL 45.1 MG/DL (>40); LDL CHOLESTEROL 169.1 MG/DL (<100); NON-HDL-C 189.9 MG/DL; POTASSIUM SERUM 3.7 MMOL/L (3.5-5.1); PROSTATIC SPECIFIC AG MONITOR 3.77 NG/ML (< 4.00); TOTAL PROTEIN 7.2 G/DL (5.7-8.2)
[2024-07-23 12:13] LABS: THYROID STIMULATING HORMONE 1.592 uIU/ML (0.55-4.78)
== END ==
LOC: M RAD 09:29
PROVIDERS: ATTEND Family Medicine
DX: E03.9 Hypothyroidism, unspecified (principal); I10 Essential (primary) hypertension; R53.83 Other fatigue; Z79.899 Other long term (current) drug therapy

== ENCOUNTER → 2024-08-31 | Outpatient (CLI) | payer MEDICARE | LOC: M RAD 09:31 | PROVIDERS: ATTEND Family Medicine | DX: R10.11 Right upper quadrant pain (principal); R10.31 Right lower quadrant pain; K80.20 Calculus of gallbladder without cholecystitis without obstruction; N28.1 Cyst of kidney, acquired; R93.2 Abnormal findings on diagnostic imaging of liver and biliary tract ==

== ENCOUNTER 2025-03-23 06:40 | Emergency (ER) | payer MEDICARE ==
[~2025-03-23] VITALS: Ht 170.2 cm; Wt 96.4 kg
[2025-03-23] MEDS: TENECTEPLASE 50 MG/10 ML VIAL IV STA (07:06)
[2025-03-23] MEDS: ASPIRIN 81 MG CHEWABLE TABLET PO ONE (07:06)
[2025-03-23] MEDS: MORPHINE 4 MG/ML 1 ML VIAL IV PRN (07:06)
[2025-03-23] MEDS: HEPARIN SOD 5000 UNITS/ML 1 ML VIAL/SYRINGE IV ONE (07:07)
[2025-03-23] MEDS: HEPARIN DRIP 25,000 UNITS in IV 1 EA IV SCH (07:11)
[2025-03-23 07:14] LABS: BASO # 0.1 10^3/uL (0.0-0.2); BASO % 1.1 % (0.0-1.0); EOS # 0.8 10^3/uL (0.0-0.5); EOS % 8.6 % (0.0-3.0); LYMPH # 4.0 10^3/uL (1.5-5.0); LYMPH % 40.3 % (24.0-44.0); MONO # 1.1 10^3/uL (0.0-0.8); MONO % 10.9 % (2.0-8.0); NEUTROPHILS # 3.8 10^3/uL (1.5-8.5); NEUTROPHILS % 38.8 % (36.0-66.0); PLATELET COUNT, AUTOMATED 220 10^3/uL (150-450)
[2025-03-23] MEDS: CLOPIDOGREL 75 MG TAB PO ONE (07:16)
[2025-03-23 07:27] LABS: INR 0.94
[2025-03-23] MEDS: NS 500 ML IV ONE (07:37)
[2025-03-23 07:39] LABS: CALCIUM LEVEL 9.0 MG/DL (8.3-10.6); CARBON DIOXIDE LEVEL 31.0 MMOL/L (20-31); CHLORIDE LEVEL 101.0 MMOL/L (98-107); CK-MB VALUE MASS 7.2 NG/ML (<3.6); CPK CREATINE PHOSPHOKINASE 227.0 U/L (46-171); CREATININE FOR GFR 1.79 MG/DL (0.70-1.30); GLOMERULAR FILTRATION RATE 37.4 (>35); MB/CK RELATIVE INDEX 3.17 (< OR =4); POTASSIUM SERUM 3.2 MMOL/L (3.5-5.1); SODIUM LEVEL 143.0 MMOL/L (136-145)
[2025-03-23 08:06] VITALS: BP 139/76; TEMP 95.1; O2SAT 96
[2025-03-23 09:00] LABS: CK-MB VALUE MASS 7.2 NG/ML (<3.6)
[2025-03-23 09:02] LABS: CPK CREATINE PHOSPHOKINASE 215.0 U/L (46-171); MB/CK RELATIVE INDEX 3.34 (< OR =4)
== END 2025-03-23 08:09 | disposition short-term general hospital (02) ==
LOC: M ED 06:40
DX: I21.3 ST elevation (STEMI) myocardial infarction of unspecified site (principal); I44.0 Atrioventricular block, first degree; I49.2 Junctional premature depolarization; I10 Essential (primary) hypertension; E78.5 Hyperlipidemia, unspecified; J45.909 Unspecified asthma, uncomplicated; N18.9 Chronic kidney disease, unspecified; G47.33 Obstructive sleep apnea (adult) (pediatric); E03.9 Hypothyroidism, unspecified; Z79.52 Long term (current) use of systemic steroids; Z79.899 Other long term (current) drug therapy
CPT/HCPCS: 71045; 80048; 82550; 82553; 84484; 85025; 85610; 85730; 93005; 93041; 94760; 96374; 96375; 99291; J3010; J3101

== ENCOUNTER → 2025-05-10 | Outpatient (CLI) | payer MEDICARE | LOC: M RAD 11:26 | PROVIDERS: ATTEND Nurse Practitioner Family | DX: K40.90 Unilateral inguinal hernia, without obstruction or gangrene, not specified as recurrent (principal) ==

== ENCOUNTER → 2025-05-19 | Outpatient (CLI) | payer MEDICARE ==
[2025-05-19 10:37] LABS: CREATININE FOR GFR 1.77 MG/DL (0.70-1.30); GLOMERULAR FILTRATION RATE 37.9 (>35)
== END ==
LOC: M LAB 09:21
PROVIDERS: ATTEND Internal Medicine Interventional Cardiology
DX: I25.118 Atherosclerotic heart disease of native coronary artery with other forms of angina pectoris (principal)